=== PATIENT | female | born 1970 | race Caucasian/White ===

== ENCOUNTER 2017-01-15 09:44 | Emergency (ER) | payer OTHER ==
[~2017-01-15] VITALS: Ht 157.5 cm; Wt 61.5 kg
[~2017-01-15 09:44] MED LIST: BACTDS PO; CEPH-443 PO; FLUC150T41 PO; HYDR-906 PO; IBUP-1542 PO; ONDA4TAB8 PO
[2017-01-15 09:48] VITALS: Ht 157.5 cm; Wt 61.5 kg
[2017-01-15] MEDS ORDERED: morphine 4 MG/ML VIAL IV STA (10:16)
[2017-01-15] MEDS ORDERED: ONDANSETRON 4 MG INJ IV STA (10:16)
--- NOTE | 2017-01-15 10:28 | ERD ---
ER Documentation Chief Complaint Date/Time DATE: 01/15/17 TIME: 10:25 Chief Complaint ap TODAY HPI This 46-year-old female who presents the emergency department today complaining some abdominal pain and nausea that started at 3:00 this morning. States she did not take any medication for the pain. Denies any fevers or chills. Denies any dysuria. Denies any previous abdominal surgeries. States her last menstrual period was last week. ROS All systems reviewed and are negative except as per history of present illness. Medications Home Meds Active Scripts Naproxen* (Naprosyn*) 500 Mg Tablet, 500 MG PO BID Y for PAIN AND/OR INFLAMMATION, #30 TAB Prov:LEEANNA LEAL PA-C 01/15/17 Ondansetron Hcl* (Zofran*) 4 Mg Tablet, 4 MG PO Q6H for NAUSEA AND/OR VOMITING, #30 TAB Prov:LEEANNA LEAL PA-C 01/15/17 Hydrocodone/Acetaminophen ([place] 5-325 Tablet) 1 Each Tablet, 1 TAB PO Q6H Y for PAIN, #12 TAB Prov:LEEANNA LEAL PA-C 01/15/17 Hydrocodone/Acetaminophen ([place] 5-325 Tablet) 1 Each Tablet, 1 TAB PO Q6H Y for PAIN, #20 TAB Prov:GRADY MONK PA-C 03/18/16 Cephalexin* (Keflex*) 500 Mg Capsule, 500 MG PO QID for 7 Days, CAP Prov:GRADY MONK PA-C 03/18/16 Sulfamethoxazole-Trimethoprim* (Bactrim* DS) 800-160 Mg Tab, 1 TAB PO BID for 7 Days, TAB Prov:GRADY MONK PA-C 03/18/16 Ibuprofen* (Ibuprofen*) 600 Mg Tablet, 600 MG PO Q6 for 3 Days, TAB Prov:EDILSON SWEENEY 12/08/15 Ondansetron Hcl* (Zofran*) 4 Mg Tablet, 4 MG PO Q6H for NAUSEA AND/OR VOMITING, #30 TAB Prov:EDILSON SWEENEY 12/08/15 Hydrocodone/Acetaminophen ([place] 5-325 Tablet) 1 Each Tablet, 1 TAB PO Q6H Y for PAIN, #10 TAB Prov:EDILSON SWEENEY 12/08/15 Fluconazole* (Fluconazole*) 150 Mg Tablet, 150 MG PO DAILY, #1 TAB Prov:DONNY NARANJO MD 10/20/15 Cephalexin* (Keflex*) 500 Mg Capsule, 500 MG PO QID for 7 Days, CAP Prov:EDILSON SWEENEY 10/17/15 Sulfamethoxazole-Trimethoprim* (Bactrim* DS) 800-160 Mg Tab, 1 TAB PO BID for 7 Days, TAB Prov:EDILSON SWEENEY 10/17/15 Allergies Allergies: Coded Allergies: No Known Allergy (Unverified , 03/18/16) PMhx/Soc History of Surgery: Yes (vp clinical shunt) Anesthesia Reaction: No Hx Neurological Disorder: Yes (hydrocephalus) Hx Miscellaneous Medical Probl: Yes (bartholin cyst ) Hx Alcohol Use: No Hx Substance Use: No Hx Tobacco Use: No Physical Exam Vitals Vital Signs Date Time Temp Pulse Resp B/P Pulse Ox O2 Delivery O2 Flow Rate FiO2 01/15/17 09:48 98.5 79 18 137/79 99 Physical Exam Const: NAD Head: Atraumatic Eyes: Normal Conjunctiva ENT: Normal External Ears, Nose and Mouth. Neck: Full range of motion..~ No meningismus. Resp: Clear to auscultation bilaterally Cardio: Regular rate and rhythm, no murmurs Abd: Soft, right upper quadrant tenderness, non distended. Normal bowel sounds. No lower abdominal pain. Skin: Evidence of of surgical scar right upper quadrant. Back: No midline or flank tenderness Ext: No cyanosis, or edema Neur: Awake and alert Psych: Normal Mood and Affect Result Diagram: 01/15/17 1029 01/15/17 1029 Results 24 hrs Laboratory Tests Test 01/15/17 10:29 01/15/17 10:40 White Blood Count 11.210^3/ul Red Blood Count 4.1810^6/ul Hemoglobin 13.2g/dl Hematocrit 37.8% Mean Corpuscular Volume 90.4fl Mean Corpuscular Hemoglobin 31.6pg Mean Corpuscular Hemoglobin Concent 34.9g/dl Red Cell Distribution Width 12.1% Platelet Count 93506^3/UL Mean Platelet Volume 9.5fl Neutrophils % 74.0% Lymphocytes % 18.9% Monocytes % 5.8% Eosinophils % 0.7% Basophils % 0.3% Nucleated Red Blood Cells % 0.0/100WBC Neutrophils # 8.310^3/ul Lymphocytes # 2.110^3/ul Monocytes # 0.710^3/ul Eosinophils # 0.110^3/ul Basophils # 0.010^3/ul Nucleated Red Blood Cells # 0.010^3/ul Sodium Level 141mmol/L Potassium Level 4.0mmol/L Chloride Level 105mmol/L Carbon Dioxide Level 28mmol/L Anion Gap 12 Blood Urea Nitrogen 10mg/dl Creatinine 0.71mg/dl Glucose Level 96mg/dl Calcium Level 9.0mg/dl Total Bilirubin 0.5mg/dl Direct Bilirubin 0.00mg/dl Indirect Bilirubin 0.5mg/dl Aspartate Amino Transf (AST/SGOT) 28IU/L Alanine Aminotransferase (ALT/SGPT) 48IU/L Alkaline Phosphatase 60IU/L Total Protein 7.8g/dl Albumin 4.1g/dl Globulin 3.70g/dl Albumin/Globulin Ratio 1.10 Lipase 73U/L Urine Color STRAW Urine Clarity CLEAR Urine pH 7.0 Urine Specific [place] 1.003 Urine Ketones NEGATIVEmg/dL Urine Nitrite NEGATIVEmg/dL Urine Bilirubin NEGATIVEmg/dL Urine Urobilinogen NEGATIVEmg/dL Urine Leukocyte Esterase NEGATIVELeu/ul Urine Microscopic RBC 0/HPF Urine Microscopic WBC 0/HPF Urine Hemoglobin 2+mg/dL Urine Glucose NEGATIVEmg/dL Urine Total Protein NEGATIVEmg/dl Current Medications Medications (Trade) Dose Ordered Sig/Willy Route PRN Reason Start Time Stop Time Status Last Admin Dose Admin Morphine Sulfate (morphine) 4 mg ONCE STAT IV 01/15/17 10:16 01/15/17 10:18 DC 01/15/17 10:48 Ondansetron HCl (Zofran Inj) 4 mg ONCE STAT IV 01/15/17 10:16 01/15/17 10:18 DC 01/15/17 10:47 DIAGNOSTIC IMAGING REPORT Patient: YAJAIRA GUERRA : 1970 Age: 46 Sex: F MR #: [id number] DOS: 01/15/17 1016 Ordering MD: LEEANNA LEAL PA-C Location: [facility] Room/Bed: PROCEDURE: US right upper quadrant abdomen. CLINICAL INDICATION: Abdominal pain TECHNIQUE: Multiple real-time images were acquired of the patient's right upper quadrant abdomen utilizing a high resolution transducer. COMPARISON: CT 12/08/2015 FINDINGS: The liver demonstrates normal echogenicity and normal size without focal lesions. Patent portal vein. Nondistended gallbladder with multiple stones. No pericholecystic fluid or gallbladder wall thickening. No intrahepatic or extrahepatic biliary dilatation. The common bile duct measures 3.1 mm in maximal dimension. Pancreas is obscured by bowel gas. The right kidney is normal size with normal echogenicity and morphology. The right kidney measures 10.0 cm. No hydronephrosis or perinephric fluid collections. There are no areas of increased echogenicity to suggest nephrolithiasis. Normal caliber aorta and IVC. No peritoneal free fluid. IMPRESSION: Cholelithiasis without ultrasound evidence of cholecystitis. RPTAT:AAJJ Physician Rasta Date Time Electronically viewed and signed by Jr Cullen Physician on 01/15/2017 11 :30 MH/ CC: LEEANNA LEAL PA-C Procedures/[facility] This 46-year-old female presents to the emergency department today complaining of abdominal pain and nausea that started this morning. On physical exam patient has right upper quadrant tenderness. There was evidence of a surgical scar and upon further questioning patient indicated that she had hydrocephalus as a child and a put a shunt in through her body that came out that area through her kidney. Upon review of patient's medical record she was seen here just over a year ago for gallstones. I did obtain laboratory workup as well as a ultrasound. Laboratory workup shows a mildly elevated white blood cell count. She is not anemic. Platelets are within normal limits. Electrolytes are within normal limits. Glucose is within normal limits. Liver enzymes are within normal limits. Lipase is within normal limits. UA is negative for infection. urine test is negative right upper quadrant ultrasound shows gallstones without ultrasound evidence of cholecystitis. There is a nondistended gallbladder with multiple stones. There is no pericholecystic fluid or gallbladder wall thickening. Common bile duct measures 3.1 mm in maximal dimension. There is no hydronephrosis there is no peritoneal free fluid. Symptoms at this time is consistent with gallstones and biliary colic. Patient has no lower abdominal pain of low suspicion for acute surgical abdomen. Patient was given morphine and Zofran here in the emergency department pain resolved. Patient was given a prescription for [place], Naprosyn and Zofran for home. Instructed to follow-up with her primary care doctor for referral to general surgery. Patient and understood At this time the patient is stable for discharge and outpatient management. Patient should follow up with their PCP in the next 1-2 days. They may return to the emergency department sooner for any persistent or worsening of symptoms. Patient and understood and agreed with the plan. Departure Diagnosis: Primary Impression: Gallstones Condition: Fair LEEANNA LEAL PA-C Jan 15, 2017 10:28
[2017-01-15 10:53] LABS: BASOPHILS % 0.3 % (0.0-2.0); EOSINOPHILS # 0.1 10^3/ul (0.0-0.5); EOSINOPHILS % 0.7 % (0.0-7.0); HEMATOCRIT 37.8 % (37.0-47.0); HEMOGLOBIN 13.2 g/dl (12.0-16.0); LYMPHOCYTES # 2.1 10^3/ul (0.8-2.9); LYMPHOCYTES % 18.9 % (15.0-51.0); MEAN CORPUSCULAR HEMOGLOBIN 31.6 pg (29.0-33.0); MEAN CORPUSCULAR HGB CONC 34.9 g/dl (32.0-37.0); MEAN CORPUSCULAR VOLUME 90.4 fl (82.0-101.0); MEAN PLATELET VOLUME 9.5 fl (7.4-10.4); MONOCYTE # 0.7 10^3/ul (0.3-0.9); MONOCYTES % 5.8 % (0.0-11.0); NEUTROPHIL # 8.3 10^3/ul (1.6-7.5); PLATELET COUNT 375 10^3/UL (140-415); RED BLOOD COUNT 4.18 10^6/ul (4.20-5.40); RED CELL DISTRIBUTION WIDTH 12.1 % (11.5-14.5); WHITE BLOOD COUNT 11.2 10^3/ul (4.8-10.8)
[2017-01-15 11:06] LABS: ADD UMIC YES; UR ASCORBIC ACID NEGATIVE (NEGATIVE); UR BILIRUBIN (Dip) NEGATIVE (NEGATIVE); UR BLOOD (Dip) 2+ mg/dL (NEGATIVE); UR CLARITY CLEAR (CLEAR); UR COLOR STRAW (YELLOW); UR GLUCOSE (Dip) NEGATIVE (NEGATIVE); UR KETONES (Dip) NEGATIVE (NEGATIVE); UR LEUKOCYTE ESTERASE (Dip) NEGATIVE Leu/ul (NEGATIVE); UR NITRITE (Dip) NEGATIVE (NEGATIVE); UR RBC 0 /HPF (0-5); UR SPECIFIC GRAVITY (Dip) 1.003 (1.003-1.030); UR TOTAL PROTEIN (Dip) NEGATIVE (NEGATIVE); UR UROBILINOGEN (Dip) NEGATIVE (NEGATIVE)
[2017-01-15 11:12] LABS: ALBUMIN 4.1 g/dl (3.3-4.9); ALBUMIN/GLOBULIN RATIO 1.1; BILIRUBIN,INDIRECT 0.5 mg/dl (0-1.1); BILIRUBIN,TOTAL 0.5 mg/dl (0.2-1.3); CREATININE 0.71 mg/dl (0.44-1.00); TOTAL PROTEIN 7.8 g/dl (6.1-8.1)
--- NOTE | 2017-01-15 11:30 | RADRPT ---
PROCEDURE: US right upper quadrant abdomen. CLINICAL INDICATION: Abdominal pain TECHNIQUE: Multiple real-time images were acquired of the patient's right upper quadrant abdomen utilizing a high resolution transducer. COMPARISON: CT 12/08/2015 FINDINGS: The liver demonstrates normal echogenicity and normal size without focal lesions. Patent portal vein . Nondistended gallbladder with multiple stones. No pericholecystic fluid or gallbladder wall thicke seble. No intrahepatic or extrahepatic biliary dilatation. The common bile duct measures 3.1 mm in m aximal dimension. Pancreas is obscured by bowel gas. The right kidney is normal size with normal ec hogenicity and morphology. The right kidney measures 10.0 cm. No hydronephrosis or perinephric flu id collections. There are no areas of increased echogenicity to suggest nephrolithiasis. Normal brett iber aorta and IVC. No peritoneal free fluid. IMPRESSION: Cholelithiasis without ultrasound evidence of cholecystitis. RPTAT:AAJJ Physician Rasta Date Time Electronically viewed and signed by Physician Rasta on 01/15/2017 11:30 /
[2017-01-15] MEDS ORDERED: ONDA4TAB8 PO (12:12)
[2017-01-15] MEDS ORDERED: NAPR-260 PO (12:12)
[2017-01-15] MEDS ORDERED: HYDR-906 PO (12:12)
[2017-01-15 12:53] VITALS: BP 111/72; PULSE 75; RESP 18
== END 2017-01-15 12:54 | disposition home or self-care (01) ==
LOC: FTE 09:44
DX: K80.20 Calculus of gallbladder without cholecystitis without obstruction (principal); R11.0 Nausea
CPT/HCPCS: 36415; 76705; 80053; 81001; 83690; 85025; 96374; 96375; J2270; J2405; Z7502

== ENCOUNTER 2017-03-10 09:04 | Day surgery (SDC) | payer OTHER ==
[2017-03-10] VITALS (16 sets, daily range): BP systolic 111–147; BP diastolic 70–89; PULSE 54–82; RESP 15–20; Ht 157.5 cm; Wt 59.6 kg
[~2017-03-10] VITALS: Ht 157.5 cm; Wt 59.6 kg
[~2017-03-10 09:04] MED LIST changes: +CEFAZOLIN 2 GM/50 ML (PMX) 50 ML IVPB SCH; +NAPR-260 PO; +SOD CHLORIDE 0.9% 1,000 ML IV SCH
[2017-03-10] MEDS ORDERED: BUPIVACAINE 0.25% (MPF) 30 ML INJ ONE (11:49)
[2017-03-10] MEDS ORDERED: SUCCINYLCHOLINE CHLORIDE 100 MG/5 ML SYG IV ONE (12:04)
[2017-03-10] MEDS ORDERED: CEFAZOLIN 1 GM INJ ONE (12:04)
[2017-03-10] MEDS ORDERED: PROPOFOL 20 ML ONE (12:04)
[2017-03-10] MEDS ORDERED: ONDANSETRON 4 MG INJ ONE (12:04)
[2017-03-10] MEDS ORDERED: METOCLOPRAMIDE 10 MG INJ ONE (12:04)
[2017-03-10] MEDS ORDERED: ROCURONIUM 50 MG INJ ONE (12:04)
[2017-03-10] MEDS ORDERED: FENTAnyl 50 MCG/ML VIAL ONE (12:04)
[2017-03-10] MEDS ORDERED: LABETALOL HCL 20MG INJ IV PRN (13:00)
[2017-03-10] MEDS ORDERED: ONDANSETRON 4 MG INJ IV PRN (13:00)
[2017-03-10] MEDS ORDERED: MEPERIDINE 25 MG INJ IV PRN (13:00)
[2017-03-10] MEDS ORDERED: HYDROmorphONE (0.2 MG/ML) 10ML SYG IV PRN ×2 (13:00)
[2017-03-10] MEDS ORDERED: hydrALAzine 20 MG INJ IV PRN (13:00)
[2017-03-10] MEDS ORDERED: FENTAnyl 50 MCG/ML VIAL IV PRN ×2 (13:00)
[2017-03-10] MEDS ORDERED: KETOROLAC 30 MG INJ ONE (13:03)
[2017-03-10] MEDS ORDERED: NEOSTIGMINE 3 MG/3 ML SYRINGE ONE (13:45)
[2017-03-10] MEDS ORDERED: ATROPINE 1 MG/10 ML SYRINGE ONE (13:45)
[2017-03-10] MEDS ORDERED: BUPIVACAINE 0.25% (MPF) 30 ML INJ INJ ONE (13:47)
--- NOTE | 2017-03-10 13:50 | OPR ---
Date/Time of Note Date/Time of Note DATE: 03/10/17 TIME: 13:45 Operative Report Procedure Date: Mar 10, 2017 Preoperative Diagnosis symptomatic gallstones Postoperative Diagnosis same Operation/Procedure Performed 1. laparoscopic cholecystectomy 2. laparoscopic lysis of adhesions 3. therapeutic injection of subcutaneous local anesthesia Surgeon see signature line Raw Hide Trimmer none Anesthesia Type: general Estimated Blood Loss: 0 - 10 ml's Transfusion none Specimen gallbladder Grafts/Implants none Complications none Pt Condition Post Procedure: stable Indications This is a 47-year-old female with symptomatic gallstones. She also has a PLASTIC OUTFITTER shunt. Risks alternatives benefits and percent were discussed the patient. Patient expresses understanding consents to the operation. Procedure Description Patient taken to the OR prepped and draped in usual sterile fashion. Surgical timeout was performed IV antibiotics given. Careful observation of prior incision alonzo for the PLASTIC OUTFITTER shunt were noticed. There were away from the port sites. Infraumbilical incision was made transversely with a 15 blade. Dissection cauterie was taken down to the fascia which was divided with curved Julio scissors. 0 Vicryl U stitch was placed into the fascia. Balloon bernal trocar is introduced. Pneumoperitoneum is established. Upon initial inspection there is multiple adhesions to the anterior abdominal wall. Lateral 5 mm port was placed under direct visualization additional right lower quadrant 12 mm port was placed under direct visualization this allowed careful dissection a laparoscopic lysis of adhesions. Initially the PLASTIC OUTFITTER shunt tubing was noticed and was noticed to be in the medial position lap scopic lysis of adhesions was performed in the right upper quadrant with careful dissection this allowed access to the gallbladder. 2 additional ports were placed one in the right mid epigastric 12 mm port was placed under direct visualization. Right upper quadrant 5 mm port was placed under direct visualization. This allowed grasping the gallbladder fundus and lateral and our direction retraction. Careful dissection with the cautery was performed to allow mobilization and dissection of the cystic duct and cystic artery. The cystic duct was divided with 3 clips proximally due to thickened tissue from inflammation distally was divided with the 35 mm echelon vascular stapler. The cystic artery was divided with 3 clips proximal and clip distal. The gallbladder was taken of the gallbladder bed. There is good hemostasis. The gallbladder was retrieved using Endo Catch bag. 0 Vicryl U stitch was tied down. Skin was closed with interrupted 4-0 Monocryl and running 4-0 Monocryl. Therapeutic contains local anesthesia was injected at the incision sites. Dry dressings were applied. Markel FERNANDO Mar 10, 2017 13:49
[2017-03-10] MEDS ORDERED: HYDROCODONE/APAP (5/325) TAB PO ONE (14:00)
[2017-03-10] MEDS: HYDROmorphONE (0.2 MG/ML) 10ML SYG IV PRN ×5 (14:13→14:58)
== END 2017-03-10 15:52 | disposition home or self-care (01) ==
LOC: SDS 09:04
PROVIDERS: ATTEND Surgery
DX: K80.20 Calculus of gallbladder without cholecystitis without obstruction (principal); K66.0 Peritoneal adhesions (postprocedural) (postinfection)
CPT/HCPCS: 47562; 84703; J0461; J0690; J1170; J1885; J2405; J2710; J2765; J3010; Z7512; Z7610